=== PATIENT | male | born 1990 | race Caucasian/White ===

== ENCOUNTER 2018-11-07 13:18 | Outpatient (CLI) | payer OTHER ==
--- NOTE | 2018-11-07 14:44 | RAD ---
CERVICAL SPINE FIVE VIEWS: 11/07/2018 HISTORY: Left-sided cervical radiculopathy. COMPARISON: None. FINDINGS: Cervical vertebral body height and alignment are within normal limits. There is no prevertebral soft tissue swelling. Open mouth odontoid view demonstrates a normal appearing dens and C1-2 articulation. Flexion and ext ension lateral views demonstrate no anterolisthesis or retrolisthesis. IMPRESSION: No acute findings. POS: [facility]
== END 2018-11-07 13:19 | disposition home or self-care (01) ==
LOC: RAD 13:18
PROVIDERS: ATTEND Family Medicine
DX: M54.12 Radiculopathy, cervical region (principal)
CPT/HCPCS: 72050

== ENCOUNTER 2018-11-26 13:38 | Outpatient (CLI) | payer OTHER ==
--- NOTE | 2018-11-26 16:23 | MRI ---
CERVICAL SPINE MRI WITHOUT CONTRAST: Date: 11/26/18 HISTORY: Left-sided cervical radiculopathy. Neck pain radiating down to left shoulder blade x2-3 years. COMPARISON: None. TECHNIQUE: MRI cervical spine is performed without intravenous Gadolinium administration. Multisequential, multi planar imaging is performed. FINDINGS: Appropriate T1 marrow signal intensity of the cervical vertebra. Cervical spine vertebral body height is maintained. There is no fracture. Visualized brain parenchyma, cervicomedullary junction, cervica l cord, and the upper thoracic cord have a normal signal and signal intensity. C2-C3: No disc osteophyte complex. No significant central canal stenosis or significant foraminal na rrowing. Minimal hypertrophic changes of the left uncovertebral joint. C3-C4: There is a central disc bulge that deforms the thecal sac. There is mild flattening of the ve ntral thecal sac and cervical cord. No T2 hyperintensity of the cord. Mild central canal stenosis. Ne ural foramina are patent bilaterally. Mild right facet hypertrophy and hypertrophic change of the rig ht uncovertebral joint. C4-C5: No significant central canal stenosis. Neural foramina are patent. C5-C6: No significant central canal stenosis. Mild bilateral foraminal narrowing. C6-C7: No significant central canal stenosis. Neural foramina are patent. C7-T1: No significant central canal stenosis. Neural foramina are patent. IMPRESSION: Limited evaluation of the cervical spine due to motion degradation and multiple sequences. Based on t he images provided, no significant foraminal narrowing. On the axial images, there does appear to be a central disc protrusion which deforms the thecal sac and ventral cord at C3-C4. This finding is dif ficult to corroborate on the sagittal images. Nevertheless, there is only mild central canal stenosis at this level. There is no definite cord signal abnormality. POS: [facility]
== END 2018-11-26 13:39 | disposition home or self-care (01) ==
LOC: BICMRI 13:38
PROVIDERS: ATTEND Family Medicine
DX: M54.12 Radiculopathy, cervical region (principal); M48.02 Spinal stenosis, cervical region
CPT/HCPCS: 72141